=== PATIENT | male | born 1970 | race American Indian/Alaskan Native ===

== ENCOUNTER 2016-10-29 23:09 | Emergency (ER) | payer OTHER ==
--- NOTE | 2016-10-30 00:30 | XRay Report ---
FINAL REPORT EXAM: XR ANKLE 2V RT HISTORY: Ankle pain, status post fall. TECHNIQUE: Frontal and lateral radiographs of the right ankle were obtained. No prior studies are available for comparison. FINDINGS: There is no fracture or dislocation. The ankle mortise is intact. There is minimal spurring at the inferior tip of the fibula. Mild hypertrophic changes are also seen at the dorsum of the midfoot. No other discrete osseous abnormality is seen. There is no significant soft tissue swelling. IMPRESSION: No fracture, dislocation, or significant soft tissue swelling.
[2016-10-30] MEDS ORDERED: NORCO 5/325 PO ONE (02:56)
[2016-10-30] MEDS ORDERED: FLEXERIL PO ONE (02:56)
--- NOTE | 2016-10-30 04:08 | Cat Scan Report ---
FINAL REPORT PROCEDURE: CT HEAD/BRAIN WO CON TECHNIQUE: Computerized tomography of the head was performed without contrast material. HISTORY: fall, LOC COMPARISON: No prior studies are available for comparison. FINDINGS: Skull and scalp: Normal. Paranasal sinuses: Normal. Ventricles and subarachnoid spaces: Normal. Cerebrum: No evidence of hemorrhage, acute infarction or mass . Cerebellum and brainstem: No evidence of hemorrhage, acute infarction or mass. Vasculature: Normal. Comments: None. IMPRESSION: There is no skull fracture. There is no intracranial hemorrhage.
--- NOTE | 2016-10-30 04:19 | Cat Scan Report ---
FINAL REPORT PROCEDURE: CT CERVICAL SPINE WO CON TECHNIQUE: Computerized tomography of the cervical spine was performed from the skull base to T1 without contrast material. HISTORY: fall, LOC COMPARISON: No prior studies are available for comparison. FINDINGS: C1-2: No significant abnormality. C2-3: No significant abnormality. C3-4: No significant abnormality. C4-5: No significant abnormality. C5-6: No significant abnormality. C6-7: No significant abnormality. C7-T1: No significant abnormality. Other: There are no fractures or malalignments. Disc spaces are normal. Facet joints are intact. Prevertebral soft tissues are normal in thickness.. IMPRESSION: No significant abnormality.
[2016-10-30 05:10] VITALS: BP 153/92
--- NOTE | 2016-10-30 05:11 | Emergency Department Report ---
ED Fall HPI - General Chief Complaint: Fall Stated Complaint: R ANKLE PAIN/FALL Source: patient Mode of arrival: Ambulatory Limitations: No Limitations - History of Present Illness Initial Comments: 46 year old male presents to ED with right ankle pain after fall. patient states stepped in a hole, fell backwards hitting his head and is unsure of LOC. patient is stable, neurologically intact and in no acute distress. patient is ambulatory with normal gait. MD Complaint: fall -: Sudden Fall From: standing When Fall Occurred: just prior to arrival Fall Witnessed: yes, by family Place Fall Occurred: other (outside) Loss of Consciousness: unsure Prolonged Down Time?: unclear Symptoms Prior to Fall: none Location: other (right ankle) Location - Extremities: Right: Ankle Severity: mild Quality: aching Context: tripped/slipped Associated Symptoms: denies. denies: headache, numbness, weakness, chest paint , shortness of breath, abdominal pain, unable to walk, lightheaded, vertigo, confusion - Related Data Previous Rx's Medication Instructions Recorded Last Taken Type Meloxicam [Mobic] 7.5 mg PO QDAY #7 tablet 10/30/16 Unknown Rx methOCARBAMOL [Robaxin TAB] 500 mg PO TID #21 tab 10/30/16 Unknown Rx Allergies Allergy/AdvReac Type Severity Reaction Status Date / Time No Known Allergies Allergy Unverified 10/29/16 23:25 ED Review of Systems ROS: Stated complaint: R ANKLE PAIN/FALL Other details as noted in HPI Constitutional: denies: chills, fever Eyes: denies: eye pain, eye discharge, vision change ENT: denies: ear pain, throat pain Respiratory: denies: cough, shortness of breath, wheezing Cardiovascular: denies: chest pain, palpitations Endocrine: no symptoms reported Gastrointestinal: denies: abdominal pain, nausea, diarrhea Genitourinary: denies: urgency, dysuria Musculoskeletal: arthralgia Skin: denies: rash, lesions Neurological: denies: headache, weakness, numbness, paresthesias, confusion, abnormal gait, vertigo Psychiatric: denies: anxiety, depression Hematological/Lymphatic: denies: easy bleeding, easy bruising ED Past Medical Hx - Past Medical History Previous Medical History?: No - Surgical History Past Surgical History?: No - Social History Smoking Status: Current Every Day Smoker Substance Use Type: Alcohol - Medications Home Medications: Home Medications Medication Instructions Recorded Confirmed Last Taken Type Meloxicam [Mobic] 7.5 mg PO QDAY #7 tablet 10/30/16 Unknown Rx methOCARBAMOL [Robaxin TAB] 500 mg PO TID #21 tab 10/30/16 Unknown Rx ED Physical Exam - General Limitations: No Limitations General appearance: alert, in no apparent distress - Head Head exam: Present: atraumatic, normocephalic - Eye Eye exam: Present: normal appearance, EOMI Pupils: Present: normal accommodation - ENT ENT exam: Present: mucous membranes moist - Neck Neck exam: Present: normal inspection, full ROM. Absent: tenderness - Respiratory Respiratory exam: Present: normal lung sounds bilaterally. Absent: respiratory distress, wheezes - Cardiovascular Cardiovascular Exam: Present: regular rate, normal rhythm. Absent: systolic murmur, diastolic murmur, rubs, gallop - GI/Abdominal GI/Abdominal exam: Present: soft, normal bowel sounds. Absent: distended, tenderness, guarding, rebound - Rectal Rectal exam: Present: deferred - Extremities Exam Extremities exam: Present: normal inspection, full ROM, tenderness (mild tenderness to right lateral ankle) - Back Exam Back exam: Present: normal inspection, full ROM. Absent: tenderness - Neurological Exam Neurological exam: Present: alert, oriented X3, normal gait - Psychiatric Psychiatric exam: Present: normal affect, normal mood - Skin Skin exam: Present: warm, dry, intact, normal color. Absent: rash ED Course Vital Signs 10/29/16 10/30/16 23:22 05:09 Temperature 98.6 F Pulse Rate 96 H 65 Respiratory 17 18 Rate Blood Pressure 159/107 Blood Pressure 153/92 [Left] O2 Sat by Pulse 99 98 Oximetry ED Medical Decision Making - Radiology Data Radiology results: report reviewed XR right ankle No fracture, dislocation, or significant soft tissue swelling. CT brain There is no skull fracture, there is no intracranial hemorrhage. CT cspine No significant abnormality. - Medical Decision Making 46 year old male presents to ED with right ankle pain and hitting head after fall. patient is neurologically intact and in no acute distress and stable. patient has negative imaging studies. patient is alert and oriented to person, place, self and time. patient has normal gait on observation. patient denies pain upon discharge. Critical care attestation.: If time is entered above; I have spent that time in minutes in the direct care of this critically ill patient, excluding procedure time. ED Disposition Clinical Impression: Fall from ground level Disposition: DC-01 TO HOME OR SELFCARE Is pt being admited?: No Does the pt Need Aspirin: No Condition: Stable Instructions: Fall Prevention (ED) Prescriptions: Meloxicam [Mobic] 7.5 mg PO QDAY #7 tablet methOCARBAMOL [Robaxin TAB] 500 mg PO TID #21 tab Referrals: PRIMARY CARE, [Primary Care Provider] - 3-5 Days
== END 2016-10-30 05:54 | disposition home or self-care (01) ==
LOC: ED 23:09
DX: M25.571 Pain in right ankle and joints of right foot (principal); F17.210 Nicotine dependence, cigarettes, uncomplicated; W18.30XA Fall on same level, unspecified, initial encounter; Y93.89 Activity, other specified; Y92.89 Other specified places as the place of occurrence of the external cause; Y99.8 Other external cause status
CPT/HCPCS: 70450; 72125; 99284